=== PATIENT | female | born 1975 | race Caucasian/White ===

== ENCOUNTER 2021-02-08 18:44 | Emergency (ER) | payer OTHER ==
[~2021-02-08 18:44] MED LIST: ALDACTONE 25MG25 MG PO; CETIRIZINE HCL10 MG PO; CLOTRIMAZOLE EARBOTH; COLACE100 MG PO; HYDROCHLOROTHIA25 MG PO; IBUPROFEN600 MG PO; K-DUR TAB 20 M20 MEQ PO; MULTIVITAMINS1 EAC1 PO; NEURONTIN 100100 MG PO; PAXIL10 MG PO; PEPCID40 MG PO; PERCOCET 10-321 EACH PO; PHENERGAN 12.12.5 M1 PO; SINGULAIR10 MG PO; TRIAMCINOLONE CREAM TOP; VITAMIN B-121000 MC3 PO; VITAMIN C500 M1 PO; VITAMIN E1000 UNI1 PO
== END 2021-02-08 22:34 | disposition left against medical advice (07) ==
LOC: ER1 18:44
DX: Z53.21 Procedure and treatment not carried out due to patient leaving prior to being seen by health care provider (principal)

== ENCOUNTER 2021-05-24 07:48 | Observation (INO) | payer OTHER ==
[~2021-05-24] VITALS: Ht 170.2 cm; Wt 85.7 kg
[~2021-05-24 07:48] MED LIST changes: -ALDACTONE 25MG25 MG PO; -CETIRIZINE HCL10 MG PO; -IBUPROFEN600 MG PO; -MULTIVITAMINS1 EAC1 PO; -NEURONTIN 100100 MG PO; -PAXIL10 MG PO; -PEPCID40 MG PO; -VITAMIN C500 M1 PO
[2021-05-24 08:15] LABS: HEMOGLOBIN 14.9 gm/dl (12.3-15.3); RED BLOOD COUNT 4.93 M/UL (4.00-5.10); WHITE BLOOD COUNT 7.1 K/UL (4.5-11.0)
[2021-05-24 08:36] LABS: BUN/CREATININE RATIO 16 (0-10)
[2021-05-24] MEDS ORDERED: IBUPROFEN800 MG PO (12:25)
[2021-05-24] MEDS ORDERED: NEURONTIN 100100 MG PO (12:34)
[2021-05-24] MEDS ORDERED: CETIRIZINE HCL10 MG PO (12:34)
[2021-05-24] MEDS ORDERED: MULTIVITAMINS1 EAC2 PO (12:34)
[2021-05-24] MEDS ORDERED: VITAMIN C500 M4 PO (12:35)
[2021-05-24] MEDS ORDERED: PEPCID40 MG PO (12:36)
[2021-05-24] MEDS ORDERED: PAXIL10 MG PO (12:37)
[2021-05-24] MEDS ORDERED: ALDACTONE 25MG25 MG PO (12:43)
[2021-05-24] MEDS ORDERED: VITAMIN D21250 MCG PO (13:58)
[2021-05-24] MEDS ORDERED: OMEPRAZOLE40 MG PO (14:01)
[2021-05-24] MEDS ORDERED: CARVEDILOL12.5 MG PO (14:03)
[2021-05-24] MEDS ORDERED: ZOFRAN ODT 4 MG4 MG PO (14:07)
[2021-05-24] MEDS ORDERED: JARDIANCE10 MG PO (14:07)
[2021-05-24] MEDS ORDERED: FLONASE ALLER15.8 ML (14:08)
[2021-05-25 06:31] LABS: HEMOGLOBIN 14.5 gm/dl (12.3-15.3); RED BLOOD COUNT 4.63 M/UL (4.00-5.10); WHITE BLOOD COUNT 6.1 K/UL (4.5-11.0)
[2021-05-25 07:03] LABS: BUN/CREATININE RATIO 26 (0-10)
[2021-05-25] MEDS ORDERED: NITROGLYCERIN0.4 MG SL (17:38)
== END 2021-05-25 18:28 | disposition home or self-care (01) ==
LOC: ER1 07:48 → CDU 12:37 → M/S 12:37
PROVIDERS: Emergency Medicine; Physician Assistant; ADMIT Internal Medicine
DX: I20.9 Angina pectoris, unspecified (principal); R94.31 Abnormal electrocardiogram [ECG] [EKG]; R74.01 Elevation of levels of liver transaminase levels; I10 Essential (primary) hypertension; E11.9 Type 2 diabetes mellitus without complications; K80.20 Calculus of gallbladder without cholecystitis without obstruction; K58.9 Irritable bowel syndrome, unspecified; E55.9 Vitamin D deficiency, unspecified; K76.0 Fatty (change of) liver, not elsewhere classified; K21.9 Gastro-esophageal reflux disease without esophagitis; Z79.899 Other long term (current) drug therapy; Z88.6 Allergy status to analgesic agent; Z88.1 Allergy status to other antibiotic agents; Z86.16 Personal history of COVID-19; Z90.710 Acquired absence of both cervix and uterus; Z20.822 Contact with and (suspected) exposure to COVID-19
CPT/HCPCS: ECHO; 36415; 71045; 76705; 78452; 80053; 80061; 81001; 82550; 82553; 82962; 83036; 83690; 83735; 83874; 84484; 85025; 85379; 93005; 93017; 93306; 99285; A9502; G0378; U0002